=== PATIENT | female | born 1975 | race Two or more races ===

== ENCOUNTER 2022-06-15 08:16 | Outpatient (CLI) | payer OTHER, SELFPAY ==
--- NOTE | 2022-06-15 09:45 | W.ANESCHARGE ---
Anesthesia Charges Start Date/Time Anesthesia Start Date: 06/15/22 Anesthesia Start Time: 09:11 Stop Date/Time Anesthesia Stop Date: 06/15/22 Anesthesia Stop Time: 09:41 Summary Emergency: No
--- NOTE | 2022-06-15 10:09 | W.ANESCHARGE ---
Anesthesia Charges Start Date/Time Anesthesia Start Date: 06/15/22 Anesthesia Start Time: 09:11 Stop Date/Time Anesthesia Stop Date: 06/15/22 Anesthesia Stop Time: 09:41 Summary Emergency: No
== END 2022-06-15 08:17 | disposition home or self-care (01) ==
LOC: OP CLINIC 08:18
PROVIDERS: PCP Physician Assistant Medical; Visit Provider Internal Medicine
DX: Z12.11 Encounter for screening for malignant neoplasm of colon (principal); K64.8 Other hemorrhoids; K21.9 Gastro-esophageal reflux disease without esophagitis; R13.10 Dysphagia, unspecified
CPT/HCPCS: 43239; 45378; 811; 813; 88305; J2704; J3490

== ENCOUNTER 2022-08-01 21:51 | Outpatient (REF) | payer OTHER, SELFPAY ==
[2022-08-01 23:48] LABS: Albumin* 4.7 g/dL (3.3-5.0); Basophils Absolute Auto 0.04 K/uL (0.00-0.30); Basophils Percent Auto 0.6 % (0.0-3.0); Chloride* 103 mmol/L (96-114); Eosinophils Absolute Auto 0.08 K/uL (0.00-0.50); Eosinophils Percent Auto 1.2 % (0.0-7.0); Hematocrit 38.5 % (33.0-51.0); Hemoglobin* 12.6 gm/dL (12.0-16.0); Immature Granulocytes Abs Auto 0.01 K/uL (0.00-0.30); Lymphocytes Percent Auto 50.5 % (20-44); Mean Corpuscular HGB Conc 33 gm/dL (32-36); Mean Corpuscular Hemoglobin 31 pg (26-34); Mean Corpuscular Volume 93 fL (80-100); Monocytes Percent Auto 8.2 % (0.0-11.0); Neutrophils Percent Auto 39.3 % (42.0-72.0); Platelet Count* 243 K/uL (140-440); Red Blood Count 4.13 m/uL (4.00-5.20); White Blood Count* 6.46 K/uL (4.50-11.00)
[2022-08-01 23:49] LABS: Potassium* 4.2 mmol/L (3.6-5.1); Sodium* 137 mmol/L (135-149)
[2022-08-01 23:51] LABS: Aspartate Amino Transferase* 27 U/L (12-35); Bilirubin Total* 0.3 mg/dL (0.1-1.5); Carbon Dioxide* 27 mmol/L (20-32); Creatinine* 0.7 mg/dL (0.5-1.5); Estimated Glomerular Filt Rate 107 ml/min; Total Protein* 7.7 g/dL (6.0-8.3)
[2022-08-01 23:52] LABS: Alanine Aminotransferase* 20 U/L (4-35); Alkaline Phosphatase* 70 U/L (40-150); Blood Urea Nitrogen* 15 mg/dL (5-24); Calcium* 9.4 mg/dL (8.4-10.6); Glucose* 73 mg/dL (60-115)
[2022-08-02 00:13] LABS: Slide Review Reflex No
== END 2022-08-01 21:52 | disposition home or self-care (01) ==
LOC: NPINS 21:51
PROVIDERS: PCP Physician Assistant Medical; Visit Provider Nurse Practitioner Family
DX: C50.911 Malignant neoplasm of unspecified site of right female breast (principal)
CPT/HCPCS: 80053; 85025

== ENCOUNTER 2023-01-25 09:00 | Outpatient (RCR) | payer OTHER, SELFPAY | END 2023-01-30 23:59 | disposition home or self-care (01) | LOC: CCIC 09:00 | PROVIDERS: PCP Physician Assistant Medical; Visit Provider Nurse Practitioner Family | DX: C50.911 Malignant neoplasm of unspecified site of right female breast (principal); Z17.0 Estrogen receptor positive status [ER+]; Z79.810 Long term (current) use of selective estrogen receptor modulators (SERMs); Z90.13 Acquired absence of bilateral breasts and nipples | CPT/HCPCS: 99212; 99213; 99214 ==

== ENCOUNTER 2023-08-23 15:00 | Outpatient (CLI) | payer OTHER, SELFPAY ==
--- NOTE | 2023-08-23 15:00 | CRLHL7_ITS ---
For Patients: As a result of the Century Cures Act, medical imaging exams and procedure reports are released immediately into your electronic medical record. You may view this report before your referring provider. If you have questions, please contact your health care provider. INDICATION: Dysmenorrhea COMPARISON: none TECHNIQUE: 2D cosme scale and color Doppler images were acquired of the pelvis using a transabdominal and transvaginal approach. FINDINGS: Sonographic images demonstrate a normal size and smooth outer contour of the uterus. Uterus measures 8.1 cm in length by 4.3 cm in AP diameter by 5.3 cm in transverse dimension. The myometrium has a normal uniform echotexture. The endometrial lining appears heterogeneous and measures 7 mm in composite thickness. The right ovary measures 4.1 x 2.1 x 2.7 cm in size and the left ovary measures 2.7 x 1.1 x 1.5 cm. Small left ovarian cysts are present measuring up to up to 2.0 cm. The ovaries demonstrate normal arterial and venous blood flow on color Doppler analysis. Trace pelvic free fluid noted. IMPRESSION: Endometrial thickness 7 millimeters. No endometrial fluid. No uterine fibroid. Small left ovarian cysts measuring up to 2.0 cm. Dictated by Robbie Nicolas MD @ 08/26/2023 8:44:54 AM (Electronically Signed)
== END 2023-08-23 15:01 | disposition home or self-care (01) ==
LOC: US 15:01
PROVIDERS: PCP Physician Assistant Medical; Visit Provider Physician Assistant Medical
DX: N94.6 Dysmenorrhea, unspecified (principal); R93.89 Abnormal findings on diagnostic imaging of other specified body structures; N83.202 Unspecified ovarian cyst, left side
CPT/HCPCS: 76830; 76856; 93976

== ENCOUNTER 2023-08-30 08:37 | Outpatient (CLI) | payer OTHER, SELFPAY | END 2023-08-30 08:38 | disposition home or self-care (01) | LOC: NFLDREF 08-31 20:59 | PROVIDERS: PCP Physician Assistant Medical; Referring Provider Physician Assistant Medical; Visit Provider Physician Assistant Medical | DX: N94.6 Dysmenorrhea, unspecified (principal); E03.9 Hypothyroidism, unspecified; E78.5 Hyperlipidemia, unspecified | CPT/HCPCS: 80061; 84443 ==

== ENCOUNTER 2023-10-07 15:00 | Outpatient (RCR) | payer OTHER, SELFPAY | END 2023-10-30 23:59 | disposition home or self-care (01) | LOC: CCIC 15:00 | PROVIDERS: PCP Physician Assistant Medical; Visit Provider Internal Medicine Hematology & Oncology | DX: C50.911 Malignant neoplasm of unspecified site of right female breast (principal); Z17.0 Estrogen receptor positive status [ER+]; R10.2 Pelvic and perineal pain; R63.5 Abnormal weight gain; L65.9 Nonscarring hair loss, unspecified | CPT/HCPCS: 99212; 99214; 99215 ==

== ENCOUNTER 2024-04-01 12:40 | Outpatient (RCR) | payer OTHER, SELFPAY ==
[2023-12-24 16:25] LABS: Calcium* 9.5 mg/dL (8.4-10.6)
[2023-12-24 16:26] LABS: Magnesium* 2.1 mg/dL (1.5-2.6)
== END 2024-06-21 23:59 | disposition home or self-care (01) ==
LOC: CCIC 12:40
PROVIDERS: PCP Physician Assistant Medical; Visit Provider Internal Medicine Hematology & Oncology
DX: C50.911 Malignant neoplasm of unspecified site of right female breast (principal); Z17.0 Estrogen receptor positive status [ER+]; Z90.13 Acquired absence of bilateral breasts and nipples; L65.9 Nonscarring hair loss, unspecified; R10.2 Pelvic and perineal pain; R63.5 Abnormal weight gain
CPT/HCPCS: 36415; 82310; 83735; 84132; 99214; 99215; G0463

== ENCOUNTER 2024-07-17 11:46 | Outpatient (CLI) | payer OTHER, SELFPAY | END 2024-07-17 11:47 | disposition home or self-care (01) | PROVIDERS: PCP Physician Assistant Medical; Visit Provider Family Medicine | DX: E06.3 Autoimmune thyroiditis (principal); E78.2 Mixed hyperlipidemia; M79.18 Myalgia, other site; Z13.21 Encounter for screening for nutritional disorder | CPT/HCPCS: 80048; 80061; 83735; 84443 ==

== ENCOUNTER 2024-09-01 09:22 | Outpatient (RCR) | payer OTHER, SELFPAY ==
--- NOTE | 2024-09-11 12:24 | ONC.NURNOTE ---
Addendum entered by Nasima Michelle 09/14/24 15:31: Left message for patient. Patient informed that per Dr. Jensen, we could consider bisphosphonates such as Zometa or Prolia. If she is interested, we could set up a visit with PERRY Soler to discuss further. Original Note: Patient called with many questions about her bone density results and aromatase inhibitors. We talked at length and I tried to reassure her of the plan for anastrozole with Calcium and Vit D. She is very concerned about her bone loss over the past 4 years. She is wondering if we need to consider a bisphosphonate such as Fosamax. Her mother is on this medication. I assured her that I would discuss with Dr. Jensen next week and return her call.
== END 2025-02-28 23:59 | disposition home or self-care (01) ==
LOC: CCIC 09:22
PROVIDERS: PCP Family Medicine; Visit Provider Internal Medicine Hematology & Oncology
DX: C50.911 Malignant neoplasm of unspecified site of right female breast (principal); Z17.0 Estrogen receptor positive status [ER+]; Z90.13 Acquired absence of bilateral breasts and nipples; Z79.810 Long term (current) use of selective estrogen receptor modulators (SERMs)
CPT/HCPCS: 99214; G0463

== ENCOUNTER 2024-09-03 13:44 | Outpatient (CLI) | payer OTHER, SELFPAY ==
--- NOTE | 2024-09-03 13:30 | CRLHL7_ITS ---
For Patients: As a result of the Century Cures Act, medical imaging exams and procedure reports are released immediately into your electronic medical record. You may view this report before your referring provider. If you have questions, please contact your health care provider. DXA BONE MINERAL DENSITY STUDY Reason for exam: Breast cancer, history of recent hysterectomy 4 weeks ago. Current height (in): 64. Weight (lb): 141. Menopause age: 48. Ethnicity: White. 1. Have you had a previous hip or vertebral fracture? No. 2. Have you had any fractures during your adult life which did not result from significant trauma (e.g., auto accident)? No. 3. Did either of your parents have a hip fracture? No. 4. Do you smoke? No. 5. Have you ever taken Glucocorticoids? No. 6. Do you have rheumatoid arthritis? No. 7. Do you have secondary osteoporosis? No. 8. Do you drink 3 or more alcoholic drinks per day? No. 9. Are you being treated for osteoporosis? No. 10. Have you ever taken any of the following medications: Actonel, Evista, Fosamax, Miacalcin, Reclast, Boniva, Forteo, HRT (i.e. estrogen/hormone therapy), Protelos, Prolia, Vitamin D, Calcium, other ??? please specify. ANSWER: Yes, vitamin D and calcium. 11. Do you have any of the following medical conditions: Anorexia or bulimia, asthma or emphysema, end stage renal disease, hyperparathyroidism, any seizure disorders, cancer, inflammatory bowel diseases, hysterectomy, other ??? please specify. ANSWER: Yes, breast cancer and hysterectomy. 12. What was your maximum height (inches)? 64. 13. Do you perform weight bearing exercise regularly? No. 14. Do you regularly consume dairy products? Yes. 15. Do you drink caffeinated beverages? Yes. 16. At what age did your period start? 10. 17. Are you premenopausal? No. 18. How many full term pregnancies have you had? 2. 19. Have you ever missed your period for more than 6 months in a row (not including or menopause)? No. TECHNIQUE: Bone mineral density study was performed using the [employer]. FINDINGS: The results of the study expressed as bone mineral density (BMD) are as follows: Lumbar spine L1 to L4: BMD: 0.923 g/cm2. T-score: -1.1. Z-score: -0.4. Neck Left: BMD: 0.711 g/cm2. T-score: -1.2. Z-score: -0.5. Right: BMD: 0.659 g/cm2. T-score: -1.7. Z-score: -1.0. Total Left: BMD: 0.875 g/cm2. T-score: -0.6. Z-score: -0.1. Right: BMD: 0.795 g/cm2. T-score: -1.2. Z-score: -0.7. IMPRESSION: Osteopenia. *Comparison exams done prior to 04/2020 were performed on different unit, [facility]. COMPARISON: Compared with scan of 10/06/2020, the bone mineral density has decreased by 3.3 percent at the spine and increased by 0.5 percent at the hip. FRAX 10-year Fracture Risk Major Osteoporotic Fracture: 4.8 percent Hip Fracture: 0.5 percent Reported Risk Factors: [place] () Neck BMD=0.659, BMI=24.2 Robbie Nicolas M.D. Diagnostic Radiologist [email or web address] SP/Dictated by: Robbie Nicolas MD @ 09/04/2024 11:51:00 AM (Electronically Signed)
== END 2024-09-03 13:45 | disposition home or self-care (01) ==
LOC: RAD 13:44
PROVIDERS: PCP Family Medicine; Visit Provider Internal Medicine Hematology & Oncology
DX: C50.911 Malignant neoplasm of unspecified site of right female breast (principal); M85.89 Other specified disorders of bone density and structure, multiple sites
CPT/HCPCS: 77080

== ENCOUNTER 2025-01-22 09:00 | Outpatient (RCR) | payer OTHER, SELFPAY ==
[2024-09-01 15:32] VITALS: BMI 25.4
[2024-09-01 16:30] VITALS: BMI 25.4
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
[2024-09-08 12:46] VITALS: BMI 25.4
[2024-09-18 08:03] VITALS: BMI 25.4
[2024-09-30 09:19] VITALS: BMI 25.4
[2024-11-06 08:32] VITALS: BMI 25.4
[2024-12-04 10:15] VITALS: BMI 25.4
[2025-01-22 09:10] VITALS: BMI 25.4
== END 2025-01-22 14:12 | disposition home or self-care (01) ==
PROVIDERS: PCP Family Medicine; Visit Provider Internal Medicine Hematology & Oncology
DX: C50.911 Malignant neoplasm of unspecified site of right female breast (principal); Z51.89 Encounter for other specified aftercare
CPT/HCPCS: 97110; 97140; 97166; 97535; 99214; G0463; X5282

== ENCOUNTER 2025-04-19 14:51 | Outpatient (RCR) | payer OTHER, SELFPAY ==
--- NOTE | 2025-03-15 14:07 | ONC.NURNOTE ---
Left message for pt indicating that no labs are needed for her 04/19/25 oncology appt.
== END 2025-10-16 23:59 | disposition home or self-care (01) ==
LOC: CCIC 14:51
PROVIDERS: PCP Physician Assistant Medical; Visit Provider Internal Medicine Hematology & Oncology
DX: C50.911 Malignant neoplasm of unspecified site of right female breast (principal); Z17.0 Estrogen receptor positive status [ER+]; Z90.13 Acquired absence of bilateral breasts and nipples; M85.80 Other specified disorders of bone density and structure, unspecified site; Z79.811 Long term (current) use of aromatase inhibitors; Z90.710 Acquired absence of both cervix and uterus; R52 Pain, unspecified
CPT/HCPCS: 99215; G0463

== ENCOUNTER 2025-07-09 09:21 | Outpatient (CLI) | payer OTHER, SELFPAY ==
--- NOTE | 2025-07-09 09:15 | CRLHL7_ITS ---
For Patients: As a result of the Century Cures Act, medical imaging exams and procedure reports are released immediately into your electronic medical record. You may view this report before your referring provider. If you have questions, please contact your health care provider. INDICATION: non toxic single thyroid nodule (right) COMPARISON: 07/08/2020 TECHNIQUE: Alfonso scale and color Doppler images were acquired of the thyroid gland. FINDINGS: Isthmus measures 2.6 millimeters. Solid nodule right thyroid lobe measures 2.7 x 1.3 x 1.8 cm, previously measuring 2.7 x 1.3 x 1.8 cm. The right lobe measures 4.8 x 1.6 x 1.9 cm and the left lobe measures 4.7 x 1.3 x 1.0 cm in size. The color Doppler images demonstrate normal vascularity. There is no evidence of cervical lymphadenopathy or parathyroid mass. IMPRESSION: Stable right-sided thyroid nodule. Dictated by Robbie Nicolas MD @ 07/09/2025 10:10:52 AM (Electronically Signed)
== END 2025-07-09 09:22 | disposition home or self-care (01) ==
LOC: US 09:23
PROVIDERS: PCP Family Medicine; Visit Provider Surgery
DX: E04.1 Nontoxic single thyroid nodule (principal)
CPT/HCPCS: 76536

== ENCOUNTER 2025-08-20 07:43 | Outpatient (CLI) | payer OTHER, SELFPAY | END 2025-08-20 07:44 | disposition home or self-care (01) | PROVIDERS: PCP Family Medicine; Referring Provider Family Medicine; Visit Provider Family Medicine | DX: Z13.1 Encounter for screening for diabetes mellitus; Z01.84 Encounter for antibody response examination; R63.5 Abnormal weight gain; Z68.27 Body mass index [BMI] 27.0-27.9, adult | CPT/HCPCS: 80048; 80061; 84439; 84443; 86706 ==

== ENCOUNTER 2025-09-25 09:50 | Outpatient (CLI) | payer OTHER, SELFPAY | END 2025-09-25 09:51 | disposition home or self-care (01) | PROVIDERS: PCP Family Medicine; Visit Provider Nurse Practitioner Family | DX: W57.XXXA Bitten or stung by nonvenomous insect and other nonvenomous arthropods, initial encounter; S40.861A Insect bite (nonvenomous) of right upper arm, initial encounter | CPT/HCPCS: 86618; 87207 ==